=== PATIENT | male | born 1960 | race Caucasian/White ===

== ENCOUNTER 2019-04-03 16:26 | Emergency (ER) | payer OTHER ==
[~2019-04-03] VITALS: Ht 170.2 cm; Wt 62.1 kg
[2019-04-03] MEDS ORDERED: ONDANSETRON ODT4 MG PO (17:04)
[2019-04-03] MEDS ORDERED: GAS RELIEF 8080 MG PO (17:04)
[2019-04-03] MEDS ORDERED: MILK OF MA400 MG/5 M PO (17:04)
[2019-04-03] MEDS ORDERED: ICY HOT1 EAC1 TOP (17:05)
[2019-04-03] MEDS ORDERED: MOVIPREP POWDE1 EACH PO (17:06)
[2019-04-03] MEDS ORDERED: THEREMS-M1 EACH PO (17:06)
[2019-04-03] MEDS ORDERED: OXYBUTYNIN 5 MG5 M2 PO (17:06)
[2019-04-03] MEDS ORDERED: FLOMAX0.4 MG PO (17:06)
[2019-04-03] MEDS ORDERED: MEDI-LYTE TABL1 EACH PO (17:06)
[2019-04-03] MEDS ORDERED: ALMACONE LIQUI355 ML PO (17:07)
[2019-04-03] MEDS ORDERED: VITAMIN D325 MC5 PO (17:07)
[2019-04-03] MEDS ORDERED: TRAMADOL 50 MG50 MG PO (17:07)
[2019-04-03] MEDS ORDERED: BISACODYL10 MG RECTAL (17:08)
[2019-04-03] MEDS ORDERED: NORVASC 2.5 MG2.5 M1 PO (17:08)
[2019-04-03] MEDS ORDERED: BUSPIRONE HCL15 MG PO (17:08)
[2019-04-03] MEDS ORDERED: GRALISE600 MG PO (17:09)
[2019-04-03] MEDS ORDERED: DIVALPROEX SOD500 M1 PO (17:09)
[2019-04-03] MEDS ORDERED: CLONAZEPAM 0.50.5 M1 PO (17:09)
[2019-04-03] MEDS ORDERED: CLOZAPINE ODT100 MG PO (17:09)
[2019-04-03] MEDS ORDERED: LEVO-T50 MCG PO (17:10)
[2019-04-03 17:27] LABS: MCH 29.4 pg (26.0-34.0); MCV 88.8 fL (80.0-100.0)
[2019-04-03 17:29] LABS: ABSOLUTE NEUTROPHILS 5.5 thou/uL (1.4-8.2); BASOPHILS 0.5 % (0.0-2.0); EOSINOPHILS 0.2 % (0.0-3.0); HEMATOCRIT 44.4 % (42.0-52.0); HEMOGLOBIN 14.7 gm/dL (14.0-18.0); LYMPHOCYTES 19.8 % (24.0-44.0); MCHC 33.1 g/dL (28.0-37.0); MONOCYTES 6.3 % (1.0-8.0); PLATELET COUNT 259 thou/uL (150-400); POLYS 73.2 % (36.0-66.0); RDW 14.7 % (10.5-14.5); WBC 7.5 thou/uL (4.0-11.0)
[2019-04-03 17:36] LABS: CALCIUM 9.1 mg/dL (8.5-10.1); CREATININE 0.6 mg/dL (0.7-1.3); POTASSIUM 3.8 mmol/L (3.5-5.1)
[2019-04-03 17:42] LABS: TOTAL BILIRUBIN 0.4 mg/dL (<0.1-1.0); TOTAL PROTEIN 7.6 g/dL (6.4-8.2)
[2019-04-03 20:29] LABS: URINE BILIRUBIN NEGATIVE (Negative); URINE BLOOD NEGATIVE (Negative); URINE CLARITY CLEAR; URINE COLOR YELLOW; URINE GLUCOSE-RANDOM* NEGATIVE (Negative); URINE KETONES 1+ (Negative); URINE LEUKOCYTES-REFLEX NEGATIVE (Negative); URINE NITRITE-REFLEX NEGATIVE (Negative); URINE PROTEIN (DIPSTICK) NEGATIVE (Negative); URINE SPECIFIC GRAVITY 1.015 (1.005-1.035)
[2019-04-03 20:38] LABS: AMP/METHAMP Negative (Negative); BARBITURATES Negative (Negative); BENZODIAZEPINES Negative (Negative); COCAINE Negative (Negative); METHADONE Negative (Negative); OPIATES Negative (Negative); PCP Negative (Negative)
[2019-04-03 23:12] VITALS: BP 138/80
--- NOTE | 2019-04-04 13:46 | EKG ---
[address] [address] ELECTROCARDIOGRAM REPORT Name: HALIMA MORALEZ Room #: DEP Shadi#: [id number] Admission: 04/03/19 Attend Phys: Discharge: 04/03/19 Date of : 60 Report #: [id number] THIS REPORT FOR: //name// [facility] ED Test Date: 2019-04-03 Test Time: 17:58:09 Pat Name: HALIMA MORALEZ Department: Room: Gender: M Cardiovascular Lab Director: [facility] : 1960 Requested By: Iron Joyce Order Number: [id number] MD: Zach Martin Measurements Intervals [place] Rate: 81 P: 61 UT: 179 QRS: 54 QRSD: 90 T: 52 QT: 364 QTc: 423 Interpretive Statements Sinus rhythm Minimal ST elevation, inferior leads No previous ECG available for comparison Electronically Signed On 04-04-2019 13:45:27 CHIEF OF PLANNING by Zach Martin [email or web address] <ELECTRONICALLY SIGNED> By: Zach Martin MD 04/04/19 1345 1758 1758 MD RASHAD Jiménez
== END 2019-04-03 23:13 | disposition home or self-care (01) ==
LOC: ER 16:26
PROVIDERS: Emergency Medicine
DX: F20.9 Schizophrenia, unspecified (principal)

== ENCOUNTER 2019-04-05 12:55 | Inpatient (IN) | payer OTHER ==
[~2019-04-05] VITALS: Ht 170.2 cm; Wt 64.0 kg
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
[~2019-04-05 12:55] MED LIST: ALMACONE LIQUI355 ML PO; BISACODYL10 MG RECTAL; BUSPIRONE HCL15 MG PO; CLONAZEPAM 0.50.5 M1 PO; CLOZAPINE ODT100 MG PO; DIVALPROEX SOD500 M1 PO; FLOMAX0.4 MG PO; GAS RELIEF 8080 MG PO; GRALISE600 MG PO; ICY HOT1 EAC1 TOP; LEVO-T50 MCG PO; MEDI-LYTE TABL1 EACH PO; MILK OF MA400 MG/5 M PO; MOVIPREP POWDE1 EACH PO; NORVASC 2.5 MG2.5 M1 PO; ONDANSETRON ODT4 MG PO; OXYBUTYNIN 5 MG5 M2 PO; THEREMS-M1 EACH PO; TRAMADOL 50 MG50 MG PO; VITAMIN D325 MC5 PO
[2019-04-05 12:57] VITALS: BP 137/93
[2019-04-05 13:09] LABS: BASOPHILS 0.4 % (0.0-2.0); EOSINOPHILS 0.4 % (0.0-3.0); HEMATOCRIT 45.8 % (42.0-52.0); HEMOGLOBIN 15.3 gm/dL (14.0-18.0); LYMPHOCYTES 12.6 % (24.0-44.0); MCH 29.2 pg (26.0-34.0); MCHC 33.5 g/dL (28.0-37.0); MCV 87.3 fL (80.0-100.0); MONOCYTES 6.3 % (1.0-8.0); PLATELET COUNT 278 thou/uL (150-400); POLYS 80.3 % (36.0-66.0); RBC 5.25 mil/uL (4.50-6.00); RDW 14.6 % (10.5-14.5); WBC 8.7 thou/uL (4.0-11.0)
[2019-04-05 13:17] LABS: ANION GAP 10 mmol/L (7-16); BUN 10 mg/dL (7-18); CALCIUM 9.1 mg/dL (8.5-10.1); CHLORIDE 96 mmol/L (98-107); CO2 26 mmol/L (21-32); CREATININE 0.7 mg/dL (0.7-1.3); GLUCOSE 133 mg/dL (74-106); POTASSIUM 3.6 mmol/L (3.5-5.1); SODIUM 132 mmol/L (136-145)
[2019-04-05 13:27] LABS: ALBUMIN 4.3 g/dL (3.4-5.0); DIRECT BILIRUBIN 0.2 mg/dL (<0.1-0.2); SGOT 19 U/L (15-37); SGPT 26 U/L (30-65); TOTAL BILIRUBIN 0.6 mg/dL (<0.1-1.0); TROPONIN-I <0.06 ng/mL (<0.06)
[2019-04-05 13:37] LABS: URINE BLOOD TRACE (Negative); URINE CLARITY CLEAR; URINE COLOR YELLOW; URINE GLUCOSE-RANDOM* NEGATIVE (Negative); URINE KETONES 2+ (Negative); URINE LEUKOCYTES-REFLEX NEGATIVE (Negative); URINE NITRITE-REFLEX NEGATIVE (Negative); URINE PROTEIN (DIPSTICK) 1+ (Negative); URINE SPECIFIC GRAVITY >= 1.030 (1.005-1.035)
[2019-04-05] MEDS ORDERED: ZOFRAN4 MG PO (13:38)
[2019-04-05] MEDS ORDERED: SEROQUEL 50 MG50 MG PO (13:39)
[2019-04-05] MEDS ORDERED: ZYPREXA2.5 MG PO (13:40)
[2019-04-05] MEDS ORDERED: EFFER-K 20 MEQ20 ME1 PO (13:41)
[2019-04-05] MEDS ORDERED: THERAGRAN-M PR1 EAC1 PO (13:42)
[2019-04-05 13:43] LABS: ICTOTEST (BILI CONFIRMATORY) Negative (Negative); URINE BILIRUBIN NEGATIVE (Negative)
[2019-04-05 13:45] LABS: AMP/METHAMP Negative (Negative); BARBITURATES Negative (Negative); BENZODIAZEPINES Negative (Negative); COCAINE Negative (Negative); HYALINE CASTS 0-3 Few /LPF (None Seen); METHADONE Negative (Negative); OPIATES Negative (Negative); PCP Negative (Negative)
[2019-04-05 13:46] LABS: BACTERIA-REFLEX 1-9 Few /HPF (None Seen); CRYSTALS None Seen /LPF (None Seen); SQUAMOUS 0-3 Few /LPF (0-3); URINE RBC 0-2 Rare /HPF (0-2); URINE WBC-REFLEX None Seen /HPF (0-5)
[2019-04-05 15:43] VITALS: BP 128/89
[2019-04-05 16:09] VITALS: BP 141/93
--- NOTE | 2019-04-05 16:30 | NUR ---
Patient admitted from the emergency room. Patient arrived on a stretcher. Patient calm, content, and pleasant. Patients assessment shows clear breath sounds, active bowel sounds, and s1 s2 heard with auscultation. Patient believes that someone is trying to harm him. Patient hears audible hallucinations in the form of "pops" as the patient describes. Patient ambulates with a walker. Patient is unable to give a clear history. Patients sister states that she is the dpoa and will bring the paperwork tomorrow. Patient denies pain. Speech is garbled. We will continue to monitor.
[2019-04-05] MEDS ORDERED: CLONAZEPAM 0.50.5 M1 PO ×2 (17:17→17:19)
[2019-04-05] MEDS ORDERED: COLACE100 MG PO (17:21)
[2019-04-05] MEDS ORDERED: MIRALAX119 GM PO (17:25)
[2019-04-05 19:20] VITALS: BP 131/69
--- NOTE | 2019-04-05 19:51 | NUR ---
ASSUMED CARE ON 04/05/19 @ 19:15, IN BED, AWAKENS TO VOICE. COOPERATES WITH ASSESSMENT. HRRR, S1S2 AUSCULTATED, LUNGS CTA ALL PICHARDO, ABD N X 4 Q. SAYS HAS 2 BM A DAY, BUT CANNOT SAY WHEN HAD LAST BM. AMBULATES WITH A WALKER, DENIES SI, HI, AH AND VH. BELIEES IS IN [facility], WILL NOT GIVE ME HIS NAME, THE NAME OF THE PRESIDENT. CANNOT SAY THAT HE IS IN [facility], BUT SAYS HE IS IN MENTAL [facility]ALTH. DENIES PAIN, ASKS HOW HIS B/P IS. WILL CONTINUE TO MONITOR Q 12 MINUTES FOR PATIENT SAFETY.
[2019-04-05 23:38] VITALS: BP 131/69
--- NOTE | 2019-04-06 06:16 | NUR ---
SLEPT SOUNDLY FOR A TOTAL OF 9.4 HOURS OF SLEEP.
[2019-04-06 07:48] VITALS: BP 118/74
--- NOTE | 2019-04-06 08:00 | NUR ---
Assumed care of patient this am. Patient up in the activity area sitting. Patient ambulates with walker. Patient takes medications whole with encouragement. Patients affect soft, patient smiling while talking with RN. Patients assessment shows clear breath sounds, active bowel sounds, and s1 s2 heard with auscultation. Will continue to monitor.
[2019-04-06 08:30] VITALS: BP 118/74
[2019-04-06 19:34] VITALS: BP 116/80
--- NOTE | 2019-04-07 03:13 | NUR ---
Assumed care of pt @ 1900. Pt calm et cooperative this shift. Pt took meds whole without difficulty. VSWNL. No behaviors noted this shift. Currently resting in bed with eyes closed. Will continue to monitor per protocol.
[2019-04-07 08:10] VITALS: BP 99/70
--- NOTE | 2019-04-07 08:24 | NUR ---
FRANCISCA completed a chart review and called Chary to discuss her concerns with placement and desire to look for alternative placement.
--- NOTE | 2019-04-07 08:51 | NUR ---
FRANCISCA spoke with Tomasa and set up a family meeting for 04/10 at 1pm. Francisca also provided her with a list of alternate placments in [place] and to start calling them to see if they have availability. [facility] [place] [facility], [facility] fo 3 weeks, [facility] 1 year and 2 inpt at [facility]. Out pt at [facility] when he lived in a longterm.
--- NOTE | 2019-04-07 08:55 | NUR ---
SW called [facility] requesting the level II documentation
--- NOTE | 2019-04-07 14:49 | EKG ---
[place] [address] [facility] [place] [address] ELECTROCARDIOGRAM REPORT Name: HALIMA MORALEZ Room #: 520A-A ADM IN M.R.#: [id number] Admission: 04/05/19 Attend Phys: Freddy Matos DO Discharge: Date of : 60 Report #: [id number] THIS REPORT FOR: //name// [facility] ED Test Date: 2019-04-05 Test Time: 13:06:48 Pat Name: HALIMA MORALEZ Department: Room: 520A Gender: M Patternmaker Plaster: ONOFRE : 1960 Requested By: Jacqueline Silverman Order Number: [id number] MD: Zach Martin Measurements Intervals [place] Rate: 97 P: 41 ME: 160 QRS: 71 QRSD: 104 T: 57 QT: 353 QTc: 449 Interpretive Statements Sinus rhythm Borderline low voltage, extremity leads Anteroseptal infarct, old Excessive artifact noted. Compared to ECG 04/03/2019 17:58:09 Myocardial infarct finding now present ST (T wave) deviation no longer present Electronically Signed On 04-07-2019 14:49:13 INORGANIC CHEMISTRY PROFESSOR by Zach Martin [email or web address] <ELECTRONICALLY SIGNED> By: Zach Martin MD 04/07/19 1449 1306 1306 Zach Martin MD /EPI
--- NOTE | 2019-04-07 15:00 | NUR ---
ASSUMED PT CARE AT 0700. PT SLEPT UNTIL UNTIL APPROX. 11:00. ORIENTED TO PERSON AND SITUATION. SOME MEDS WERE DC'D DUE TO PT BEING TOO DROWSEY. PT TOOK MEDS WHOLE. NO SUICIDAL OR HOMICIDAL IDEATION, HAS HAD A CALM MOOD. RESTING IN BED WITH EYES CLOSED. WILL CONT POC.
[2019-04-07 19:39] VITALS: BP 114/71
--- NOTE | 2019-04-07 20:09 | NUR ---
ASSUMED CARE ON 04/07/19 @ 19:15, IN BED AWAKENED TO VOICE. ALERT, AWAKE AND ORIENTED X2 TO PERSON AND . DENIES PAIN, DENIES NEED. HRRR, S1S2 NOTED. LUNGS CTA ALL PICHARDO, ABD N X 4 Q. BED IN LOW POSITION, BED ALARM SET, WILL CONTINUE TO MONITOR Q 12 MINUTES FOR PATIENT SAFETY.
[2019-04-08 04:25] VITALS: BP 114/71
--- NOTE | 2019-04-08 07:30 | NUR ---
Assumed care of patient this am. Patient calm and happy. Patient denies pain at this time. Patient ambulates with a walker and has a steady gate. Patient takes medications whole with thin fluids. Patients assessment shows clear breath sounds, active bowel sounds, and s1 s2 heard with auscultation.
[2019-04-08 07:49] VITALS: BP 126/66
[2019-04-08 08:00] VITALS: BP 126/66
[2019-04-08 20:19] VITALS: BP 144/67
--- NOTE | 2019-04-09 01:04 | NUR ---
ASSUMED CARE OF PATIENT ON 04/08/2019 AT 1915, PATIENT IN BED UPON ONE TO ONE, HE IS ALERT AND ORIENTED X4, CALM AND COOPERATIVE. HE APPEARS WITH AN APPROPRIATE AFFECT. WHEN ASKED PATIENT RELATED TO SI HI HE STATES 'NO WAY I WOULD NEVER THINK ABOUT ANYTHING LIKE THAT.' HE DENIES PAIN, BUT IS POSITIONED AWKWARDLY IN BED. HE DID NOT REPORT MEDICAL CONCERNS AND DOES NOT APPEAR TO BE IN MEDICAL DISTRESS. NURSING WILL MAINTAIN ALL PRECAUTIONS TO ENSURE SAFETY AT ALL TIMES.
[2019-04-09 07:41] VITALS: BP 122/72
--- NOTE | 2019-04-09 10:34 | NUR ---
Dwaine completed chart review and it was reported in treatment team that pt was respnding well to the medication changes and could d/c as early as Sunday or Sunday. Dwaine then called Tomasa and left a VM reporting this and for a few placement options and permission to send updates to [facility]. DWAINE explained that she could still look for alternate placement from [facility] using these resources provided. Dwaine asked for a call back RICKY.
[2019-04-09 10:47] VITALS: BP 122/72
--- NOTE | 2019-04-09 11:00 | NUR ---
0648 RESUMMED CARE FROM OVERNIGHT SHIFT, PATIENT QUIET COOPERATIVE. PATIENT GOT UP AND ATE BREAKFAST WENT TO ROOM AND TOOK MEDICATION WITHOUT INCIDENCE. PATIENT DID NOT WANT TO ATTEND GROUPS STATES IT IS BORING, SO PATIENT STAYED IN ROOM RELAXING. DR ROBERTSON ORDERED A UA FOR PATIET TO CHECK FOR KETONES. WILL CONTINUE TO MONITOR PATIENT FOR BEHAVIORS AND SAFETY.
[2019-04-09 13:12] LABS: URINE BILIRUBIN NEGATIVE (Negative); URINE BLOOD NEGATIVE (Negative); URINE CLARITY SL CLOUDY; URINE COLOR YELLOW; URINE GLUCOSE-RANDOM* NEGATIVE (Negative); URINE KETONES 1+ (Negative); URINE LEUKOCYTES NEGATIVE (Negative); URINE NITRITE NEGATIVE (Negative); URINE PROTEIN (DIPSTICK) NEGATIVE (Negative)
--- NOTE | 2019-04-09 15:48 | NUR ---
Sw spoke with pt's sister and she asked the referral to be sent to [facility].
[2019-04-09 19:37] VITALS: BP 107/75
[2019-04-09 21:44] VITALS: BP 107/75
--- NOTE | 2019-04-09 22:09 | NUR ---
PATIENT RESTING IN BED. HE SEEMS SUSPICIOUS WHEN I COME IN TO SEE HIM TONIGHT. HE DID TAKE HIS MEDS WHOLE. HE DID NOT WANT TO TALK OR BE BOTHERED. PATIENT DID DENY PAIN AND STATES HE JUST WANTS TO SLEEP. BED IN LOW POSITION AND BED ALARM ON. PATIENT IS WITHDRAWN BUT PLEASANT AND COOPERATIVE. NO HALLUCINATIONS NOTED.
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
--- NOTE | 2019-04-09 23:17 | NUR ---
PATIENT AWOKE AND WALKED TO BATHROOM DOOR WITH WALKER AND THEN SAT DOWN ON FLOOR OUTSIDE BATHROOM DOOR. I ASKED HIM IF HE WAS IN PAIN. HE STATES HE IS NOT. I ASKED IF I COULD HELP HIM TO THE BATHROOM AND HE SAID, "I AM OK. I JUST WANT TO SIT HERE." I LET HIM SIT ON FLOOR FOR 10 MINUTES AND THEN WENT BACK. HE ASKED ME TO CHECK HIS BP. I CHECKED AND HIS BP IS 98/68 P 81 R 20 02 SAT AT 98 % RA. PATIENT STATES, " I FEEL LIKE I AM FLYING. I CAN'T STOP. I FEEL LIKE I AM GOING TO HAVE A HEART ATTACK IF I CAN'T SLOW DOWN." HEART RHYTHM REGULAR. NO SOB. PATIENT APPEARS CALM. CALLED DR ROBERTSON AND LORAZAPAM 0.25MG PO ORDERED ONE TIME NOW. TO CALL DR Foster IF NOT IMPROVING. PATIENT WENT BACK TO BED AND LORAZEPAM 0.25MG PO GIVEN. PATIENT THANKED THIS NURSE FOR HELPING HIM.
--- NOTE | 2019-04-10 04:35 | NUR ---
PATIENT HAS SLEPT COMFORTABLY SINCE RECIEVING LORAZEPAM 0.25. HE DOES AWAKEN EASILY. HE DENIES PAIN. HE DENIES HALLUCINATIONS, SI/HI. PATIENT SLEEPING WITH WALKER NEXT TO BED. BED IN LOW POSITION. WILL CONTINUE TO MONITOR.
[2019-04-10 07:48] VITALS: BP 110/74
--- NOTE | 2019-04-10 12:35 | NUR ---
Lying supine in bed without s/o distress. Alert and orientated X4. Refused to go to group this AM stating he is tired and didn't sleep at all last night. Denies pain, SI/HI. Breath sounds clear t/o, bilaterally equal. Reg HR auscultated. Color pink with brisk capillary refill and palpable peripheral pulses. Yellow urine per urinal. Active bowel sounds over soft, rounded abdomen. Ambulates with walker with irregular gait. Compliant with meds and meals. 1240 Ate lunch in dining room with peers. No s/o distress.
--- NOTE | 2019-04-10 14:15 | NUR ---
FRANCISCA attended a family meeting with pt and his DPOA Bridget. SW explained Level II placement vs memory care. SW provided a listing of NH near the [facility]. Bridget reported that pt said he is still hearing disturbing thoughts but is not telling staff. Pt confirmed this in front of the psych doctor. Bridget asked that a referral be sent to [facility] for pt. She also gave permission that if she does not answer, staff can speak with her sister Katty Hicks. [phone]. SW team will continue to follow pt during his stay on this unit.
[2019-04-10 19:30] VITALS: BP 116/83
[2019-04-10 22:00] VITALS: BP 116/83
--- NOTE | 2019-04-11 03:17 | NUR ---
PATIENT WAS IN BED WHEN THIS NURSE ARRIVED ON SHIFT AT 1900. HE DENIES PAIN. HIS VSS. PATIENT USES URINAL WHEN IN BED. HE IS UP WITH WALKER. A/0X4. AT 2145 PATIENT BEGAN FEELING LIKE HIS HEART WAS BEATING FAST AND HE EXPRESSED IT HE FELT LIKE HE WAS "FLYING" AND THAT HIS HEART WOULD JUST "FLY OUT OF HIM." VSS TAKEN AT THAT TIME SHOWED BP OF 133/74 P84 R20 02%95. A ONE TIME MED OF FLUPHENAZINE HCL 1.25MG THAT WAS ORDERED FOR NOW WAS GIVEN TO PATIENT AND NOTIFIED GONZALEZ ALLISON OF ABOVE. NEW ORDER TO GIVE ATIVAN 0.5MG NOW AND REPEAT IN 45 MINUTES IF ANXIETY NOT IMPROVING. 2ND DOSE HAD TO BE ADMINISTERED. PATIENT FELL ASLEEP SHORTLY AFTER AND HAS BEEN SLEEPING SINCE 2330. FIRST DOSE GIVEN AT 2200. PATIENT STATES HE IS NOT SEEING OR HEARING VOICES. HE STATES HE'S NOT ANXIOUS ABOUT ANYTHING THAT HE IS AWARE OF. CONTINUING TO MONITOR PATIENT.
[2019-04-11 09:00] VITALS: BP 113/66
--- NOTE | 2019-04-11 17:57 | NUR ---
PATIENT HAS BEEN QUIET AND DETACHED MOST OF THE DAY. ATTENDS MEALS BUT DOES NOT ENGAGE WITH PEERS - ATTENDED GROUPS - THEN ISOLATES TO ROOM ONCE AGAIN. FOUND HOLDING HEAD SEVERAL TIMES AND WHEN QUESTIONED STATED NOT SURE IF HE WAS HEARING VOICES OR NOT. APPEARS ABSORBED IN THOUGHT AND TROUBLED - STATES ALL IS OK. DENIES ANY S/I OR H/I - WALKS AROUND AND UTILIZES HIS WALKER BUT UNSTEADY AT TIMES. MEDICATION COMPLIANT - STATES NO PAIN DISCOMFORT WHEN ASSESSED.
[2019-04-11 19:27] VITALS: BP 138/79
--- NOTE | 2019-04-12 03:16 | NUR ---
ASSUMED CARE OF PATIENT ON 04/11/2019 AT 1915, PATIENT IS ALERT AND ORIENTED X3, IN BED WITH EYES OPEN UPON ONE TO ONE WITH PATIENT. HE APPEARS WITH A FLAT AFFECT, BUT REPORTS HE IS 'FEELING GOOD.' HE REPORTED AH OF A 'RINGING NOISE' WHICH IS NEW TO THE PATIENT. HE DENIED ANY OTHER HALLUCINATIONS. HE MAINTAINED TO ISOLATE IN HIS ROOM, BUT DID AMBULATE TO DAY ROOM WITH WALKER BRIEFLY. HE DENIES SI HI AT THIS TIME. HE DENIED PAIN WELL. HE DENIED OTHER MEDICAL CONCERNS AND DOES NOT APPEAR TO BE IN DISTRESS. NURSING WILL MAINTAIN ALL PRECAUTIONS TO ENSURE SAFETY AT ALL TIMES.
[2019-04-12 08:36] VITALS: BP 111/72
--- NOTE | 2019-04-12 11:12 | NUR ---
AT 0715 ASSUMED CARE OF PATIENT ON 04/12/19. 0800 PATIENT IN DAYROOM FOR BREAKFAST. AFTER BREAKFAST PATIENT IS BACK IN BED. AT 0850 ASSESSMENT COMPLETED IN PATIENTS ROOM. PATIENT LYING DOWN IN BED WITH EYES CLOSED PATIENT AWAKES WHEN NAME CALLED. STATES "I DID NOT SLEEP WELL AND I HAVE NOT FOR DAYS". I EXPLAINED THAT IT WAS REPORTED TO ME THAT HE SLEPT 9.4 HRS. PATIENT RESPONDS WITH "I DON'T THINK SO". PATIENT IS COOPERATIVE AND SITS ON SIDE OF BED FOR ASSESSMENT. PATIENT IS A & O X4, DENIES SI/HI AND AVH AT THIS TIME. STATES HAS PAIN TO SHOULDERS AND RATES PAIN AT A 3.5, DENIES NEED FOR PAIN MED AND STATES ITS USUALLY THERE WHEN LAYING DOWN. DESCRIBES PAIN A CRAMPING PAIN. WHEN ASKED PATIENT ABOUT A GOAL OR CONCERN, PATIENT STATES GOAL- DOES NOT KNOW AND CONCERN- NONE. EXPLAINED TO PATIENT ABOUT PARTICIPATING IN GROUPS AND PATIENT VOICED UNDERSTANDING.
--- NOTE | 2019-04-12 19:50 | NUR ---
ASSUMED CARE ON 04/12/19 @ 19:15, PATIENT AMBULATING FROM ROOM TO DAY ROOM. COOPERATED WITH ASSESSMENT, HRRR, LUNGS CTA, ABD N X 4 Q. REPORTS BM TODAY. DENIES SI AND HI DENIES HALLUCINATION, A/V.
--- NOTE | 2019-04-12 21:20 | NUR ---
REFUSED GABAPENTIN 300, TAMULOSIN 0.8 AND FLUPHENAZINE HCL 1.25 @ 2100. EDUCATION PROVIDED REGARDING THE BENEFITS OF EACH MED, AND THE DANGERS OF SKIPPING A DOSE OF EACH. PATIENT CONTINUES TO REFUSE. IN BED, BED IN LOW POSITION, BED ALARM SET, WILL CONTINUE TO MONITOR Q 12 FOR PATIENT SAFETY.
[2019-04-12 21:46] VITALS: BP 111/72
--- NOTE | 2019-04-12 22:47 | NUR ---
requested medicine for sleep, accepted fluphenazine hcl 1.25, continued to refuse gabapentin 300 and tamulosin 0.8.
--- NOTE | 2019-04-13 06:08 | NUR ---
SLEPT 3.8 HOURS
[2019-04-13 06:18] LABS: CALCIUM 8.9 mg/dL (8.5-10.1); CREATININE 0.6 mg/dL (0.7-1.3); POTASSIUM 4.1 mmol/L (3.5-5.1)
[2019-04-13 08:00] VITALS: BP 138/85
[2019-04-13 08:19] VITALS: BP 138/85
--- NOTE | 2019-04-13 10:23 | EKG ---
[place] [address] [facility] [place] [address] ELECTROCARDIOGRAM REPORT Name: HALIMA MORALEZ Room #: 520A-A ADM IN M.R.#: [id number] Admission: 04/05/19 Attend Phys: Freddy Matos DO Discharge: Date of : 60 Report #: [id number] THIS REPORT FOR: //name// [facility] Test Date: 2019-04-12 Test Time: 13:45:05 Pat Name: HALIMA MORALEZ Department: Room: 520A A Gender: M Dimmer Board Operator: SHARON : 1960 Requested By: Ivonne Eduardo Order Number: [id number] MD: Mario Mcarthur Measurements Intervals [place] Rate: 95 P: 50 [place]: 157 QRS: 31 QRSD: 119 T: 71 QT: 341 QTc: 429 Interpretive Statements Sinus rhythm Nonspecific intraventricular conduction delay Borderline low voltage, extremity leads Compared to ECG 04/05/2019 13:06:48 No significant change Electronically Signed On 04-13-2019 10:23:04 WAX POURER by Mario Mcarthur [email or web address] <ELECTRONICALLY SIGNED> By: Mario Mcarthur MD 04/13/19 1023 1345 44 MD RASHAD Paige
--- NOTE | 2019-04-13 10:23 | EKG ---
[address] [place] [address] ELECTROCARDIOGRAM REPORT Name: HALIMA MORALEZ Room #: 520A-A ADM IN M.R.#: [id number] Admission: 04/05/19 Attend Phys: Freddy Matos DO Discharge: Date of : 60 Report #: [id number] THIS REPORT FOR: //name// [facility] Test Date: 2019-04-12 Test Time: 13:43:55 Pat Name: HALIMA MORALEZ Department: Room: 520A A Gender: M Oncology Physician Assistant: SHARON : 1960 Requested By: Freddy Matos Order Number: [id number] MD: Mario Mcarthur Measurements Intervals [place] Rate: 95 P: 52 AK: 165 QRS: 65 QRSD: 77 T: 75 QT: 332 QTc: 418 Interpretive Statements Sinus rhythm Nonspecific T-wave abnormalities Compared to ECG 04/05/2019 13:06:48 No significant changes Electronically Signed On 04-13-2019 10:22:40 EXECUTIVE CANDIDATE DEVELOPER by Mario Mcarthur [email or web address] <ELECTRONICALLY SIGNED> By: Mario Mcarthur MD 04/13/19 1022 1343 1343 MD RASHAD Paige
--- NOTE | 2019-04-13 11:40 | NUR ---
Assumed care of patient this am. Patient awake laying in bed. Patient states that he smells something funny in his room. RN explained that it is only the house keepers cleaning supplies. Patient also states that he was not sleeping well. Patient is calm, content and cooperative. Patient ambulates with a walker. Patient takes medications whole with fluids. Patients assessment shows clear breath sounds, active bowel sounds and s1 s2 heard with auscultation.
--- NOTE | 2019-04-13 14:55 | NUR ---
Sw met with pt's sister and provided an update regaridng medications and placement. Dwaine sent updates to [facility] with an anticipation of a Sunday d/c . Still pending placement at [facility].
--- NOTE | 2019-04-13 15:04 | NUR ---
FRANCISCA sent updates to [facility] in the event he goes there at D/C.
[2019-04-13 19:07] VITALS: BP 105/74
[2019-04-13 22:13] VITALS: BP 105/74
--- NOTE | 2019-04-13 23:55 | NUR ---
PATIENT HAS BEEN UP AND DOWN IN BED UP TILL 2229. HE HAS BEEN OUT IN HALLWAY SITTING AT DIFFERENT SPOTS. HAD TO REMIND PATIENT TO USE HIS WALKER WHEN UP WALKING AND TO WEAR NON SLIP SOCKS. PATIENT HAS BEEN OVERLY CONCERNED ABOUT NEW PATIENT TWO DOORS DOWN THAT CAME IN TONIGHT. HE SAT OUTSIDE PATIENT'S ROOM AND MONITORED PEOPLE COMING IN AND OUT OF ROOM AND WAS CONCERNED WHEN PATIENT WAS YELLING OUT D/T HE TALKS LOUDLY. HE LET THIS NURSE KNOW THAT HE THINK THE PATIENT WAS GIVEN A SHOT AND THAT IS WHY HE WAS YELLING. HE HAD NOT HAD A SHOT BUT PATIENT WAS AGITATED. THEN PATIENT WAS CONCERNED BECAUSE HIS LIGHT UNDER THE BED KEPT GOING OFF AND ON AND HE DIDN'T WANT IT ON. HE RUSHED OUT OF HIS ROOM AT ONE POINT AND TOLD ANOTHER NURSE, "WE NEED TO CALL THE [facility]." AND THEN HE KEPT LOOKING AROUND HIS ROOM TO CHECK AND MAKE SURE EVERYTHING WAS CLEAR. ASSISTED PATIENT TO BED AND MADE SURE THE LIGHT UNDER THE BED WAS OFF. PATIENT IS RESTLESS AND IMPULSIVE TONIGHT. HE DID HAVE A BM. CALLED DR SOLORIO AND ASKED FOR PRN FOR SLEEP. TRAZADONE 50MG PO HS PRN WAS ORDERED. PT IS SLEEPING NOW AND NO TRAZADONE WAS GIVEN AT THIS TIME. WILL CONTINUE TO MONITOR.
[2019-04-14 07:24] VITALS: BP 128/78
--- NOTE | 2019-04-14 11:42 | NUR ---
Lying supine in bed without s/o distress. Consistentlly states that he is at [facility] instead of [facility]. Also states day is Sunday and that it is the or . Denies pain, SI/HI. Sitting in hallway on floor at times. Breath sounds clear t/o, bilaterally equal. Reg HR auscultated, color pink with brisk capillary refill and palpable peripheral pulses. Yellow urine per urinal. Active bowel sounds over soft, rounded abdomen. Ambulates with slow, irregular gait with aid of walker.
--- NOTE | 2019-04-14 14:53 | NUR ---
FRANCISCA contacted Marich[facility] with [facility] who said at this time they are unable to accept pt due to them not being sure if his diagnosis is dementia, and because he has not been a [place] resident for at least 30 days so at this time he is ineligible for [place] Medicaid. FRANCISCA contacted Bridget. No answer. Lft msg. FRANCISCA then contacted Katty and gave her an update. She said okay to pt going back to [facility]. FRANCISCA contacted [facility] and left a message for admissions to return her call to facilitate d/c for pt. FRANCISCA team will continue to follow pt during his stay on this unit.
[2019-04-14 20:06] VITALS: BP 122/81
[2019-04-14 21:00] VITALS: BP 122/81
--- NOTE | 2019-04-14 21:06 | NUR ---
PATIENT IS CALM AND COOPERATIVE TONIGHT. NO BEHAVIORS. PATIENT REQUESTS HIS MEDS EARLY SO HE CAN GO TO SLEEP. PATIENT DENIES PAIN. PATIENT IS RESTING. VSS. WILL CONTINUE TO MONITOR.
--- NOTE | 2019-04-14 21:34 | NUR ---
PT GOT OUT OF BED AND WALKED INTO THE HALLWAY AND WAS SITTING DOWN ON FLOOR. ASKED PATIENT IF HE WAS OK. HE STATES THAT HE WAS HAVING TROUBLE STAYING ASLEEP AND HE HAD A SHARP PAIN THAT CAME TO HIS LEFT CHEST BUT DID NOT STAY. PT ASSESSED. NO SOB, VSS 123/84 P84 R18 0298%RA. PATIENT STATES THAT HE DOES NOT FEEL LIKE HIS HEART IS RACING. PATIENT IS APPEARS CALM. PT DOES FEEL HE HAS TO HAVE A BM. SUGGESTED IT MAY BE GAS PAINS. ASSISTED PATIENT BACK TO ROOM. HE IS SITTING IN BATHROOM HAVING A BM. TRAZADONE 50MG PO AND TYLENOL 650MG PO GIVEN TO PATIENT. PATIENT STATES HE DOES NOT NEED THIS NURSE TO STAY WITH HIM IN THE BATHROOM AND HE WILL CALL IF HE NEEDS HELP. STATES HE IS FEELING A LITTLE GAS PASSING. WILL CONTINUE TO ASSESS AND MONITOR SITUATION.
--- NOTE | 2019-04-14 22:29 | NUR ---
PT C/O STILL FEELING CHEST PAIN IN LEFT CHEST. NO SOB NOTED. VSS. CALLED [facility]ROLOGIST ELECTRO MECHANICAL SOLAR TECHNICIAN. GI COCKTAIL PO ORDERED STAT. GI COCKTAIL GIVEN. PATIENT REPORTED FEELING SLIGHTLY BETTER AFTER DOSE. CHECKED BACK IN 5 MINUTES AND PATIENT STATES HIS PAIN IS GONE AND HE DOESN'T WANT ANYMORE MEDS TONIGHT. PATIENT'S HOB WAS PLACE UP 30 DEGREES BEFORE GI COCKTAIL AND REMAINS TO PROMOTE BETTER AIRWAY AND DECREASE GERD. NOTIFIED JENNI MONK THAT PATIENT STATES HIS PAIN IS GONE AND IS NOW TRYING TO SLEEP.
--- NOTE | 2019-04-15 03:55 | NUR ---
PATIENT HAS BEEN SLEEPING SOUNDLY SINCE HE HAD THE GI COCKTAIL. HE SAID THIS TOOK AWAY HIS PAIN. BED IN LOW POSITON AND WALKER AND URINAL AT BEDSIDE. WILL CONTINUE TO MONITOR.
[2019-04-15 09:06] VITALS: BP 107/65
--- NOTE | 2019-04-15 10:41 | NUR ---
FRANCISCA called and left a VM for pt's sister to confirm d/c today and that a referral was sent to [facility] per her request. FRANCISCA faxed d/c orders, summary and updated packet . Reported this to nursing.
[2019-04-15] MEDS ORDERED: FLOMAX0.4 MG PO (11:02)
[2019-04-15] MEDS ORDERED: DEPAKOTE 250MG250 M1 PO (11:04)
[2019-04-15] MEDS ORDERED: NEURONTIN 300300 M1 PO (11:04)
[2019-04-15] MEDS ORDERED: TRAZODONE HCL50 MG PO (11:05)
[2019-04-15] MEDS ORDERED: FLUPHENAZINE H2.5 MG PO (11:06)
--- NOTE | 2019-04-15 11:43 | NUR ---
1000 Ambulating with walker without s/o distress. Present in group this AM. Alert and orientated to person and time, states he is at [facility]. Denies SI/HI. States L shoulder is hurting a 3/10, Tylenol given. Breath sounds clear t/o, bilaterally equal. Reg HR auscultated. Color pink with brisk capillary refill and palpable peripheral pulses. Cuff BP 107/65 this AM, repeated with AM meds 95/64, amylodopine held. No edema noted. Independent with voiding. Active bowel sounds over soft, rounded abdomen. Plan on discharge this afternoon.
[2019-04-15 13:47] VITALS: BP 90/56
[2019-04-15 13:48] VITALS: BP 110/67
== END 2019-04-15 14:00 | DRG 885 ==
LOC: ER 12:55 → EROBS 14:31 → SBH 14:31 → EROBS 14:31 → SBH 16:09
PROVIDERS: Emergency Medicine; Psychiatry & Neurology Psychiatry; ADMIT Psychiatry & Neurology Psychiatry
DX: F25.9 Schizoaffective disorder, unspecified (principal); F01.51 Vascular dementia, unspecified severity, with behavioral disturbance; G95.89 Other specified diseases of spinal cord; G93.40 Encephalopathy, unspecified; M50.01 Cervical disc disorder with myelopathy, high cervical region; R82.4 Acetonuria; R45.1 Restlessness and agitation; N40.0 Benign prostatic hyperplasia without lower urinary tract symptoms; I10 Essential (primary) hypertension; E03.9 Hypothyroidism, unspecified; F09 Unspecified mental disorder due to known physiological condition; K21.9 Gastro-esophageal reflux disease without esophagitis; G89.4 Chronic pain syndrome; Z79.899 Other long term (current) drug therapy
CPT/HCPCS: 10880

== ENCOUNTER 2019-04-15 22:40 | Emergency (ER) | payer OTHER ==
[~2019-04-15] VITALS: Ht 170.2 cm; Wt 65.3 kg
--- NOTE | ~2019-04-15 | EKG ---
[address] [address] ELECTROCARDIOGRAM REPORT Name: HALIMA MORALEZ Room #: DEP LEIGHA Hsu#: [id number] Admission: 04/15/19 Attend Phys: Discharge: 04/16/19 Date of : 60 Report #: [id number] THIS REPORT FOR: //name// [facility] ED Test Date: 2019-04-15 Test Time: 22:51:28 Pat Name: HALIMA MORALEZ Department: Room: Gender: M Three Dimensional Map Modeler: SANNA : 1960 Requested By: Adore Tirado Order Number: [id number] MD: Measurements Intervals [place] Rate: 77 P: [place]: QRS: 50 QRSD: 86 T: 71 QT: 367 QTc: 416 Interpretive Statements Atrial fibrillation ST elevation, consider inferior injury Compared to ECG 04/12/2019 13:45:05 ST (T wave) deviation now present Myocardial infarct finding now present Sinus rhythm no longer present Intraventricular conduction delay no longer present [email or web address] By: 2251 2251 Epiphany EpiphanyMD /EPI
[~2019-04-15 22:40] MED LIST changes: +COLACE100 MG PO; +DEPAKOTE 250MG250 M1 PO; +EFFER-K 20 MEQ20 ME1 PO; +FLUPHENAZINE H2.5 MG PO; +MIRALAX119 GM PO; +NEURONTIN 300300 M1 PO; +SEROQUEL 50 MG50 MG PO; +THERAGRAN-M PR1 EAC1 PO; +TRAZODONE HCL50 MG PO; +ZOFRAN4 MG PO; +ZYPREXA2.5 MG PO
[2019-04-15 23:02] LABS: ABSOLUTE NEUTROPHILS 3.9 thou/uL (1.4-8.2); BASOPHILS 0.5 % (0.0-2.0); EOSINOPHILS 0.9 % (0.0-3.0); HEMOGLOBIN 14.2 gm/dL (14.0-18.0); LYMPHOCYTES 33.1 % (24.0-44.0); MCH 29.4 pg (26.0-34.0); MCHC 33.1 g/dL (28.0-37.0); MCV 88.6 fL (80.0-100.0); MONOCYTES 8.3 % (1.0-8.0); PLATELET COUNT 283 thou/uL (150-400); POLYS 57.2 % (36.0-66.0); RBC 4.85 mil/uL (4.50-6.00); RDW 14.8 % (10.5-14.5); WBC 6.8 thou/uL (4.0-11.0)
[2019-04-15 23:07] LABS: ANION GAP 5 mmol/L (7-16); BUN 16 mg/dL (7-18); CALCIUM 8.6 mg/dL (8.5-10.1); CHLORIDE 101 mmol/L (98-107); CO2 29 mmol/L (21-32); CREATININE 0.6 mg/dL (0.7-1.3); GLUCOSE 89 mg/dL (74-106); SODIUM 135 mmol/L (136-145)
[2019-04-15 23:17] LABS: ALBUMIN 3.7 g/dL (3.4-5.0); SGOT 11 U/L (15-37); SGPT 19 U/L (30-65); TOTAL BILIRUBIN 0.2 mg/dL (<0.1-1.0); TOTAL PROTEIN 7.1 g/dL (6.4-8.2); TROPONIN-I <0.06 ng/mL (<0.06)
[2019-04-16 04:29] VITALS: BP 134/94
== END 2019-04-16 04:29 | disposition home or self-care (01) ==
LOC: ER 22:40
PROVIDERS: Student in an Organized Health Care Education/Training Program
DX: G91.2 (Idiopathic) normal pressure hydrocephalus (principal); I10 Essential (primary) hypertension; E03.9 Hypothyroidism, unspecified; M48.00 Spinal stenosis, site unspecified; G62.9 Polyneuropathy, unspecified; F20.9 Schizophrenia, unspecified; F90.9 Attention-deficit hyperactivity disorder, unspecified type; F41.9 Anxiety disorder, unspecified; F31.9 Bipolar disorder, unspecified

== ENCOUNTER 2020-06-29 18:33 | Emergency (ER) | payer OTHER ==
[~2020-06-29] VITALS: Ht 170.2 cm; Wt 72.6 kg
--- NOTE | ~2020-06-29 | EMS ---
[facility] [address] [place] [address] EMS Patient Care Report Name: HALIMA MORALEZ Room #: DEP LEIGHA Hsu#: [id number] Admission: 06/29/20 Attend Phys: Discharge: 06/29/20 Date of : 60 Report #: [id number] THIS REPORT FOR: //name// Report Transmitted: 06/30/2020 07:23 EMS Care Summary [facility] MED-ACT Incident [id number] @ 06/29/2020 17:59 Incident Location [address] [place] [address] Patient HALIMA MORALEZ Male, 59 Years 1960 Patient Address [address] [place] [address] Patient History Bipolar II Disorder,Schizophrenia,Depression,Anxiety,Novel Coronavirus (COVID-19), Patient Allergies No known allergies, Patient Medications Levothyroxine, Hydrocodone, Gabapentin, Claritin, Tramadol, Chief Complaint "they keep changing my meds." Disposition Transported No Lights/[place] Reason Psychiatric Problem/Abnormal Behavior/Suicide Attempt Transported To [facility] Narrative Medic 1149 arrived on scene to find one patient laying down on the couch in the [facility] [address] [place] [address] EMS Patient Care Report Name: HALIMA MORALEZ Room #: DEP LEIGHA Hsu#: [id number] Admission: 06/29/20 Attend Phys: Discharge: 06/29/20 Date of : 60 Report #: [id number] TV room. Staff stated that he got angry and refused to go back to his room so the doctor wanted him to be sent out for further evaluation. Patient stated he wanted to go to the hospital for medication changes. Patient was not violent or aggressive to staff or crew on scene. Patient request to transport to [facility]. Patient stated that they???ve been changing his meds a lot recently. Patient denied any SI or HI. Patient contact, physical assessment, patient stood and walked to his room to get his coat then walked back and sat on the car, Patient Moved out to the ambulance without incident, vitals, waiting report was given to [place], patient was brought to the Kevin Bed, patient moved himself over to the bed report was given to RN at bedside, patient was left table or staff at bedside. Note: While leaving the facility the nurse came up to the crew and stated that he didn???t know they called 911 they were supposed to call [facility]. Nurse stated that he would talk to the staff about it. Initial Vitals @18:15P: 103,R: 16,BP: 117/70,Pain: 0/10,GCS: 15,Temp: 98.3F,Glucose: 141,SpO2: 97,Revised Trauma: 12, Assessments @18:12MENTAL:Person Oriented,Event Oriented,Time Oriented,Place Oriented,SKIN:HEENT:Eyes: No Abnormalities,LUNG SOUNDS:ABDOMEN:PELVIS//GI:EXTREMITIES:PULSE:NEURO: Impression Behavioral/psychiatric episode Procedures @PTASurgical Mask on PatientResponse: Unchanged Timeline FINANCIAL OFFICER,Surgical Mask on Patient,Response: Unchanged 17:58,Call Received 17:58,Psap Call 17:59,Dispatched 17:59,En Route 18:07,On Scene 18:10,At Patient 18:15,BP: 117/70 M,PULSE: 103,RR: 16 R,SPO2: 97 Ox,ETCO2: ,B,PAIN: 0,GCS: 15, 18:21,Depart Scene 18:30,At Destination [facility] [address] [address] EMS Patient Care Report Name: HALIMA MORALEZ Room #: DEP Shadi#: [id number] Admission: 06/29/20 Attend Phys: Discharge: 06/29/20 Date of : 60 Report #: [id number] 18:54,Call Closed Disclaimer v1.1 Copyright 2020 [employer] This EMS Care Summary contains data elements from the applicable legal record (which may be displayed differently). It is designed to provide pertinent information for the following purposes: continuity of care, clinical quality, and state data reporting. The complete legal record is available to ED staff and administrators of the receiving hospital in [employer] Patient Tracker. All data is provided "as is."
[2020-06-29 21:46] VITALS: BP 107/65
== END 2020-06-29 21:46 | disposition home or self-care (01) ==
LOC: ER 18:33
DX: F41.9 Anxiety disorder, unspecified (principal); I10 Essential (primary) hypertension; E03.9 Hypothyroidism, unspecified; Z79.899 Other long term (current) drug therapy